=== PATIENT | female | born 1925 | race Caucasian/White ===

== ENCOUNTER 2017-02-07 04:06 | Inpatient (IN) | payer OTHER, BC ==
[2017-02-07] MEDS ORDERED: NS 1,000 ML IV ONE (04:23)
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
[2017-02-07 04:45] LABS: % IMMATURE GRANULYOCYTES 0.6 % (0.0-1.1); ABSOLUTE IMMATURE GRANULOCYTES 0.09 10^3/uL (0.00-0.10); ADD DIFF? NO; ADD MORPH? NO; ADD SCAN? NO; ATYPICAL LYMPHOCYTE FLAG 0 (0-99); FRAGMENT RBC FLAG 0 (0-99); HEMATOCRIT 45.4 % (38.0-47.0); HEMOGLOBIN 15.4 g/dL (12.6-16.3); LEFT SHIFT FLG 0 (0-99); LIPEMIA HEMOLYSIS FLAG 90 (0-99); MEAN CELL HEMOGLOBIN CONCENTR. 33.9 g/dL (32.4-36.7); MEAN CELL VOLUME 94.4 fL (81.5-99.8); MEAN PLATELET VOLUME 9.9 fL (8.7-11.7); PLATELET CLUMPS FLAG 0 (0-99); PLATELET COUNT 329 10^3/uL (150-400); RED BLOOD CELL COUNT 4.81 10^6/uL (4.18-5.33); RED CELL DISTRIBUTION WIDTH 14.4 % (11.5-15.2)
[2017-02-07 04:59] LABS: INR 1.13 (0.83-1.16); PROTIME(PATIENT) 14.4 SEC (12.0-15.0)
--- NOTE | 2017-02-07 04:59 | CPEKG ---
Heart Rate: 88 RR Interval: 682 P-R Interval: 140 QRSD Interval: 110 QT Interval: 384 QTC Interval: 465 P Paterson: 26 QRS Paterson: 9 T Wave Paterson: -12 EKG Severity - ABNORMAL ECG - EKG Impression: SINUS RHYTHM EKG Impression: LOW VOLTAGE IN FRONTAL LEADS Electronically Signed By: Pasha Frey 07-Feb-2017 05:00:16
[2017-02-07 05:00] LABS: APTT 29.7 SEC (23.0-38.0)
[2017-02-07 05:05] LABS: ANION GAP 21 mEq/L (8-16); CALCIUM 10.6 mg/dL (8.5-10.4); CARBON DIOXIDE 18 mEq/l (22-31); CHLORIDE 98 mEq/L (97-110); CREATININE 2.4 mg/dL (0.6-1.0); GLOMERULAR FILTRATION RATE 19; GLUCOSE 116 mg/dL (70-100); POTASSIUM 5.1 mEq/L (3.5-5.2); SODIUM 137 mEq/L (134-144)
[2017-02-07] MEDS ORDERED: ONDANSETRON DISINTEGRATING 4 MG TAB PO PRN (06:22)
[2017-02-07] MEDS ORDERED: ONDANSETRON 4 MG/2 ML VIAL IVP PRN (06:22)
[2017-02-07 06:40] LABS: COLOR YELLOW; LEUKOCYTE ESTERASE,URINE TRACE (NEGATIVE); NITRITE,URINE NEGATIVE (NEGATIVE)
[2017-02-07 06:45] LABS: BACTERIA TRACE /hpf (NONE SEEN); MUCUS TRACE /lpf (NONE-1+); WBC,URINE 25-50 /hpf (0-3)
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
[2017-02-07] MEDS: NS 1,000 ML IV SCH (09:23)
--- NOTE | 2017-02-07 11:41 | WOCRNPDOC ---
WOCRN Advanced Assessment Note - Skin Integrity Problem, Advanced Assess Left Posterior Upper Thigh Pressure Injury Dressing Type: Open to Air Exudate Amount: None Tomeka Wound Tissue: Blanching, Erythema Wound Bed Color: Red Wound Bed Constitution: Smooth Tissue Wound Edges: Attached Site Measurement - Head-to-Toe Length X Width X Depth (cm): Larger and proximal wound: 9x1.5x0.1 (only a small area 0.2x0.2 is open at this point,2nd and distal wound: stage 1: 17x0.2x0 Pressure Injury Stage: Stage 1, Deep Tissue Injury (DTI) Pressure Injury Present on Admit: Yes Skin Integrity Problem Comment: Large evolving deep tissue injury presents as a stage 2 at this time. Small blistering noted with tiny areas of partial thickness opening. There is a long linear line distal to the deep tissue injury that is a stage 1. Both wounds are device related. Wound care will revisit next week. Leave DICK and gently apply skin repair cream BID. Keep area offloaded. Patient cannot sit on toilet for longer than 15 min at a time.
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
[2017-02-07] MEDS ORDERED: ALLOPURINOL 300 MG TAB PO SCH (14:00)
[2017-02-07] MEDS: HEPARIN 5,000 UNIT/0.5 ML SYR SC SCH ×2 (14:40→21:20)
[2017-02-07] MEDS: ALLOPURINOL 100 MG TAB PO SCH (14:40)
[2017-02-07] MEDS: ACETAMINOPHEN 325 MG TAB PO PRN (14:40)
[2017-02-07 16:06] LABS: COLOR YELLOW; LEUKOCYTE ESTERASE,URINE 3+ (NEGATIVE); NITRITE,URINE NEGATIVE (NEGATIVE)
[2017-02-07 16:12] LABS: MUCUS TRACE /lpf (NONE-1+); RBC,URINE 25-50 /hpf (0-3); WBC,URINE 50-182 /hpf (0-3)
[2017-02-07] MEDS: ASPIRIN EC 81 MG TAB PO SCH (21:10)
[2017-02-08] MEDS: ACETAMINOPHEN 325 MG TAB PO PRN ×2 (00:30→04:42)
[2017-02-08 05:47] LABS: % IMMATURE GRANULYOCYTES 0.6 % (0.0-1.1); ABSOLUTE IMMATURE GRANULOCYTES 0.06 10^3/uL (0.00-0.10); ADD DIFF? NO; ADD MORPH? NO; ADD SCAN? NO; ATYPICAL LYMPHOCYTE FLAG 0 (0-99); FRAGMENT RBC FLAG 0 (0-99); HEMATOCRIT 39.1 % (38.0-47.0); HEMOGLOBIN 13.1 g/dL (12.6-16.3); LEFT SHIFT FLG 0 (0-99); LIPEMIA HEMOLYSIS FLAG 80 (0-99); MEAN CELL HEMOGLOBIN 31.6 pg (27.9-34.1); MEAN CELL HEMOGLOBIN CONCENTR. 33.5 g/dL (32.4-36.7); MEAN CELL VOLUME 94.4 fL (81.5-99.8); MEAN PLATELET VOLUME 10.7 fL (8.7-11.7); PLATELET CLUMPS FLAG 0 (0-99); PLATELET COUNT 276 10^3/uL (150-400); RED BLOOD CELL COUNT 4.14 10^6/uL (4.18-5.33); RED CELL DISTRIBUTION WIDTH 14.3 % (11.5-15.2)
[2017-02-08] MEDS: LEVOTHYROXINE 88 MCG TAB PO SCH (05:55)
[2017-02-08] MEDS: HEPARIN 5,000 UNIT/0.5 ML SYR SC SCH ×3 (05:55→22:49)
[2017-02-08 06:04] LABS: ALANINE AMINOTRANSFERASE 31 IU/L (9-52); ALBUMIN 3.1 g/dL (3.5-5.0); ALKALINE PHOSPHATASE 80 IU/L (38-126); ANION GAP 13 mEq/L (8-16); ASPARTATE AMINOTRANSFERASE 54 IU/L (14-46); BILIRUBIN,TOTAL 0.7 mg/dL (0.1-1.4); CALCIUM 9.3 mg/dL (8.5-10.4); CARBON DIOXIDE 18 mEq/l (22-31); CHLORIDE 104 mEq/L (97-110); CREATININE 1.3 mg/dL (0.6-1.0); GLOMERULAR FILTRATION RATE 39; GLUCOSE 90 mg/dL (70-100); POTASSIUM 3.8 mEq/L (3.5-5.2); SODIUM 135 mEq/L (134-144); TOTAL PROTEIN 5.2 g/dL (6.3-8.2)
[2017-02-08] MEDS ORDERED: BISACODYL 10 MG SUPP PR PRN (09:45)
[2017-02-08] MEDS ORDERED: LACTULOSE 20 GM/30 ML UDCUP PO PRN (09:45)
[2017-02-08] MEDS ORDERED: MAGNESIUM HYDROXIDE 30 ML UDCUP PO PRN (09:45)
[2017-02-08] MEDS ORDERED: POLYETHYLENE GLYCOL 3350 17 GM PKT PO PRN (09:45)
[2017-02-08] MEDS: NS 1,000 ML IV SCH (12:33)
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
[2017-02-08] MEDS: traMADol 50 MG TAB PO PRN (14:14)
[2017-02-08] MEDS: ALLOPURINOL 100 MG TAB PO SCH (14:14)
[2017-02-08] MEDS: SENNOSIDES/DOCUSATE SODIUM TAB PO SCH (19:52)
[2017-02-08] MEDS: GABAPENTIN 300 MG CAP PO SCH (20:37)
[2017-02-08] MEDS: ASPIRIN EC 81 MG TAB PO SCH (20:37)
[2017-02-09] MEDS: traMADol 50 MG TAB PO PRN ×2 (01:51→21:52)
[2017-02-09 05:18] LABS: % IMMATURE GRANULYOCYTES 0.7 % (0.0-1.1); ABSOLUTE IMMATURE GRANULOCYTES 0.07 10^3/uL (0.00-0.10); ADD DIFF? NO; ADD MORPH? NO; ADD SCAN? NO; ATYPICAL LYMPHOCYTE FLAG 0 (0-99); FRAGMENT RBC FLAG 0 (0-99); HEMATOCRIT 33.6 % (38.0-47.0); HEMOGLOBIN 11.3 g/dL (12.6-16.3); LEFT SHIFT FLG 0 (0-99); LIPEMIA HEMOLYSIS FLAG 80 (0-99); MEAN CELL HEMOGLOBIN 31.8 pg (27.9-34.1); MEAN CELL HEMOGLOBIN CONCENTR. 33.6 g/dL (32.4-36.7); MEAN CELL VOLUME 94.6 fL (81.5-99.8); MEAN PLATELET VOLUME 10.4 fL (8.7-11.7); PLATELET CLUMPS FLAG 0 (0-99); PLATELET COUNT 218 10^3/uL (150-400); RED BLOOD CELL COUNT 3.55 10^6/uL (4.18-5.33); RED CELL DISTRIBUTION WIDTH 14.2 % (11.5-15.2)
[2017-02-09] MEDS: LEVOTHYROXINE 88 MCG TAB PO SCH (05:28)
[2017-02-09] MEDS: HEPARIN 5,000 UNIT/0.5 ML SYR SC SCH ×3 (05:28→21:52)
[2017-02-09 05:42] LABS: ANION GAP 7 mEq/L (8-16); CALCIUM 8.7 mg/dL (8.5-10.4); CARBON DIOXIDE 19 mEq/l (22-31); CHLORIDE 101 mEq/L (97-110); GLOMERULAR FILTRATION RATE 52; GLUCOSE 72 mg/dL (70-100); SODIUM 127 mEq/L (134-144)
[2017-02-09] MEDS: SENNOSIDES/DOCUSATE SODIUM TAB PO SCH ×2 (08:48→23:58)
[2017-02-09] MEDS: ACETAMINOPHEN 325 MG TAB PO PRN ×2 (08:51→21:42)
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
[2017-02-09] MEDS: ALLOPURINOL 300 MG TAB PO SCH (15:25)
[2017-02-09] MEDS: ALLOPURINOL 100 MG TAB PO SCH (15:54)
[2017-02-09] MEDS: HYDROmorphONE/DILAUDID 1 MG/ML SYR IVP PRN ×2 (17:38→23:35)
[2017-02-09] MEDS: GABAPENTIN 300 MG CAP PO SCH (21:42)
[2017-02-09] MEDS: ASPIRIN EC 81 MG TAB PO SCH (21:42)
[2017-02-10 05:14] LABS: ABSOLUTE IMMATURE GRANULOCYTES 0.08 10^3/uL (0.00-0.10); ADD DIFF? NO; ADD MORPH? NO; ADD SCAN? NO; ATYPICAL LYMPHOCYTE FLAG 0 (0-99); FRAGMENT RBC FLAG 0 (0-99); HEMATOCRIT 35.9 % (38.0-47.0); HEMOGLOBIN 11.8 g/dL (12.6-16.3); LEFT SHIFT FLG 0 (0-99); LIPEMIA HEMOLYSIS FLAG 80 (0-99); MEAN CELL HEMOGLOBIN 31.6 pg (27.9-34.1); MEAN CELL HEMOGLOBIN CONCENTR. 32.9 g/dL (32.4-36.7); MEAN PLATELET VOLUME 10.4 fL (8.7-11.7); PLATELET CLUMPS FLAG 0 (0-99); PLATELET COUNT 210 10^3/uL (150-400); RED BLOOD CELL COUNT 3.74 10^6/uL (4.18-5.33); RED CELL DISTRIBUTION WIDTH 14.5 % (11.5-15.2)
[2017-02-10] MEDS: LEVOTHYROXINE 88 MCG TAB PO SCH (05:24)
[2017-02-10] MEDS: HEPARIN 5,000 UNIT/0.5 ML SYR SC SCH (05:24)
[2017-02-10] MEDS: ACETAMINOPHEN 325 MG TAB PO PRN ×3 (05:24→18:35)
[2017-02-10 05:31] LABS: ANION GAP 10 mEq/L (8-16); CALCIUM 8.9 mg/dL (8.5-10.4); CARBON DIOXIDE 19 mEq/l (22-31); CHLORIDE 104 mEq/L (97-110); CREATININE 0.8 mg/dL (0.6-1.0); GLOMERULAR FILTRATION RATE > 60; GLUCOSE 78 mg/dL (70-100); POTASSIUM 4.3 mEq/L (3.5-5.2); SODIUM 133 mEq/L (134-144)
[2017-02-10] MEDS: traMADol 50 MG TAB PO PRN ×2 (12:11→18:35)
[2017-02-10] MEDS: SENNOSIDES/DOCUSATE SODIUM TAB PO SCH ×2 (12:11→20:21)
--- NOTE | 2017-02-10 15:16 | HOSPPROG ---
Hospitalist Progress Note Assessment/Plan: * Metabolic encephalopathy - improved * Klebsiella UTI with severe sepsis (POA) -change to PO Keflex * Diffuse pain - finally got up with therapy today -once she moves, she does not have any localized pain -seems to be more neuropathic - increase gabapentin -pelvic CT negative for fracture * Urinary retention - clot in bladder as source of obstruction - due to infection -remove rosas with voiding trial * ARF - improving with IVF * Advanced dementia - improved agitation -DC sitter with intent of DC to SNF soon Subjective: Got up to commode today. Needs full assist, but minimal pain with the transfer. Now sitting on commode comfortably Objective: Vital Signs Temp Pulse Resp BP Pulse Ox 36.4 C 81 16 92/57 L 90 L 02/10/17 12:06 02/10/17 12:06 02/10/17 12:06 02/10/17 12:06 02/10/17 12:06 Microbiology 02/07/17 07:41 Blood Panel (PCR) - Final Blood Staph Coagulase Negative 02/07/17 16:13 Urine Culture - Final Urine,Clean Catch Klebsiella Pneumoniae Ssp Pneu Laboratory Results 02/10/17 04:39 02/10/17 04:39 02/09/17 02/10/17 02/11/17 05:59 05:59 05:59 Intake Total 2087 340 Output Total 825 800 400 Balance 1262 -460 -400 PT 14.4 SEC (12.0-15.0) 02/07/17 04:35 INR 1.13 (0.83-1.16) 02/07/17 04:35 - Physical Exam Constitutional: no apparent distress, appears nourished, not in pain Cardiovascular: regular rate and rhythym, no murmur, rub, or gallop Respiratory: no respiratory distress, no rales or rhonchi, clear to auscultation Gastrointestinal: normoactive bowel sounds, soft, non-tender abdomen, no palpable masses Skin: no rashes or abrasions, no fluctuance, no induration Neurologic: No AAOx3 Psychiatric: encephalopathic, poor insight, poor judgement, poor memory, No agitated ICD10 Worksheet Patient Problems: Problems Problem Status Onset Dehydration Acute Failure to thrive Acute Contusion of right leg Acute Hyponatremia Acute Supratherapeutic INR Acute Tibial plateau fracture, right Acute Urinary tract infection Acute
[2017-02-10] MEDS: ALLOPURINOL 300 MG TAB PO SCH (15:39)
[2017-02-10] MEDS: ENOXAPARIN 40 MG/0.4 ML SYR SC SCH (15:39)
[2017-02-10] MEDS: GABAPENTIN 300 MG CAP PO SCH (20:21)
[2017-02-10] MEDS: ASPIRIN EC 81 MG TAB PO SCH (20:21)
[2017-02-10] MEDS ORDERED: HYDROmorphONE/DILAUDID 1 MG/ML SYR IVP PRN (22:29)
[2017-02-11] MEDS: LEVOTHYROXINE 88 MCG TAB PO SCH (04:27)
[2017-02-11] MEDS: ACETAMINOPHEN 325 MG TAB PO PRN ×2 (04:27→11:42)
[2017-02-11] MEDS: traMADol 50 MG TAB PO PRN ×2 (04:27→11:42)
[2017-02-11] MEDS: ENOXAPARIN 40 MG/0.4 ML SYR SC SCH (08:29)
[2017-02-11] MEDS: GABAPENTIN 300 MG CAP PO SCH (08:29)
[2017-02-11] MEDS: SENNOSIDES/DOCUSATE SODIUM TAB PO SCH (08:29)
[2017-02-11] MEDS ORDERED: CEPHALEXIN 500 MG CAP PO SCH (09:00)
[2017-02-11 09:14] VITALS: BP 127/76; PULSE 99; RESP 16; TEMP 98.3; O2SAT 100
[2017-02-11] MEDS: ALLOPURINOL 300 MG TAB PO SCH (11:42)
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
--- NOTE | 2017-02-11 13:53 | PDIAF ---
- Diagnosis Diagnosis: UTI Code Status: Full Code - Medication Management Discharge Medications: Medications to Continue on Transfer Allopurinol [Allopurinol 300 MG (RX)] 300 mg PO DAILY@14 02/07/17 [Last Taken Unknown] Aspirin EC [Aspirin EC 81 mg (*)] 81 mg PO HS 02/07/17 [Last Taken Unknown] Levothyroxine [Synthroid 88 mcg (*)] 88 mcg PO DAILY06 02/07/17 [Last Taken Unknown] traMADol [Ultram 50 mg (*)] 25 mg PO Q6H PRN 02/07/17 [Last Taken Unknown] Cephalexin [Keflex (*)] 500 mg PO BID #10 cap 02/11/17 [Last Taken Unknown] Gabapentin [Neurontin 300 MG (*)] 300 mg PO BID #60 cap 02/11/17 [Last Taken Unknown] Iron Piler Antibiotic Stop Date: 02/15/17 Discharge Medications: Refer to the Discharge Home Medication list for PRN reason. - Orders Services needed: Physical Therapy, Occupational Therapy, Speech Language Pathologist Diet Recommendation: no restrictions on diet Christianson: Yes Additional: Palliative care - Labs/Radiology BMP Date: 02/13/17 - Follow Up Care Current Providers and Referrals: Patient,NotPresent [Primary Care Provider] - As per Instructions
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
== END 2017-02-11 16:40 | DRG 871 ==
LOC: EDUNIT# → OBSVTOIN 06:43 → F1N 08:19
PROVIDERS: ADMIT Student in an Organized Health Care Education/Training Program; ATTEND Student in an Organized Health Care Education/Training Program
DX: A41.89 Other specified sepsis (principal); G93.41 Metabolic encephalopathy; N39.0 Urinary tract infection, site not specified; N17.9 Acute kidney failure, unspecified; R33.9 Retention of urine, unspecified; F03.90 Unspecified dementia, unspecified severity, without behavioral disturbance, psychotic disturbance, mood disturbance, and anxiety; B96.1 Klebsiella pneumoniae [K. pneumoniae] as the cause of diseases classified elsewhere; E86.0 Dehydration; I10 Essential (primary) hypertension; E03.9 Hypothyroidism, unspecified; L89.891 Pressure ulcer of other site, stage 1; Z87.891 Personal history of nicotine dependence; Z79.01 Long term (current) use of anticoagulants; Z86.711 Personal history of pulmonary embolism; Z86.718 Personal history of other venous thrombosis and embolism
CPT/HCPCS: 92526-GN; 92610-GN; 97163-GP; 97166-GO; G8978-GP-CM; G8979-GP-CL; G8987-GO-CN; G8988-GO-CN; G8996-GN-CI; G8997-GN-CH; J0696; J1170; J1650